=== PATIENT | male | born 1975 | race Caucasian/White ===

== ENCOUNTER 2019-03-07 18:32 | Emergency (ER) | payer OTHER ==
[2019-03-07] MEDS ORDERED: Sodium Chloride 0.9% 10 ML Syringe FLUSH PRN (18:49)
[2019-03-07] MEDS ORDERED: Sodium Chloride 0.9% 1,000 ML IV ONE (18:50)
[2019-03-07] MEDS ORDERED: Metoclopramide 10 MG/2 ML SDV IVPUSH ONE (18:56)
[2019-03-07] MEDS ORDERED: diphenhydrAMINE 50 MG/ML SDV IVPUSH ONE (18:56)
[2019-03-07] MEDS ORDERED: Dexamethasone 4 MG/ML SDV IVPUSH ONE (18:57)
[2019-03-07] MEDS ORDERED: Ketorolac 30 MG/ML SDV IVPUSH ONE (18:57)
[2019-03-07] MEDS ORDERED: LORazepam 2 MG/ML SDV IVPUSH ONE (19:22)
--- NOTE | 2019-03-07 19:31 | EDM.PDOC ---
ED HPI GENERAL MEDICAL PROBLEM - General Chief Complaint: Headache Stated Complaint: MIGRAINE Time Seen by Provider: 03/07/19 19:15 Source of Information: Reports: Patient History Limitations: Reports: No Limitations - History of Present Illness INITIAL COMMENTS - FREE TEXT/NARRATIVE: Devan is a 43 year old male, hx of HTN, just seen at [place] "my blood work all looked good" for his ongoing HTN issues. Patient on Metoprolol, another medication added yesterday, patient unsure of name but possibly amlodipine. Patient just started this yesterday. Patient presents today with a headache, hx of migraines normally relived with Imitrex and Lyric, not today, worse pain than normal. Patient has vomited 3 times today. Patient denies any fever/chills /neck pain or stiffness or trauma. Patient took ibuprofen this morning, also ineffective. Patient reports light/loud sounds makes symptoms worse. Onset: Today - Related Data Allergies Allergy/AdvReac Type Severity Reaction Status Date / Time No Known Allergies Allergy Verified 03/07/19 18:51 Home Meds: Home Meds *Blood Pressure Med 10 mg PO DAILY 03/07/19 [History] *Testosterone ASDIRECTED 03/07/19 [History] Levothyroxine 200 mcg PO ACBREAKFAST 03/07/19 [History] Metoprolol Tartrate [Lopressor] 100 mg PO BID 03/07/19 [History] SUMAtriptan Succinate [Imitrex] 100 mg PO ASDIRECTED PRN 03/07/19 [History] Social & Family History - Tobacco Use Smoking Status *Q: Never Smoker - Recreational Drug Use Recreational Drug Use: No ED ROS GENERAL - Review of Systems Review Of Systems: ROS reveals no pertinent complaints other than HPI. - Physical Exam Exam: See Below Exam Limited By: No Limitations General Appearance: Alert, WD/WN, Mild Distress Eye Exam: Bilateral Eye: EOMI, PERRL Ears: Normal External Exam Throat/Mouth: Normal Inspection, Normal Oropharynx Head Exam: Atraumatic, Normocephalic Neck: Normal Inspection, Supple, Non-Tender Respiratory/Chest: No Respiratory Distress Cardiovascular: Normal Peripheral Pulses, Regular Rate, Rhythm, Other ( Hypertensive) Extremities: Normal Inspection Psychiatric: Normal Affect Skin Exam: Warm, Dry Course - Vital Signs Last Recorded V/S: Last Vital Signs Temp Pulse 87 03/07/19 20:22 Resp 16 03/07/19 20:22 BP 125/79 03/07/19 20:22 Pulse Ox 94 L 03/07/19 20:22 Devan is a 43 year old male, hx of HTN and migraine headaches, presents to the ED today with migraine unrelieved at home with Imitrex and a shot of Lyric which is usually effective for him. Patient arrives here significantly hypertensive, afebrile, no nuchal rigidity, signs of meningismus or neuro/focal deficits. Patient given IV fluids with Reglan, Benadryl, Toradol, and Decadron with minimal improvement in his symptoms. Given his HTN and severity of headache I am concerned about an acute intracranial process related to his HTN, CT of head obtained and is fortunately negative. Patient was given 1 mg of Ativan IV with resolution of headache and significant improvement in blood pressure to 125/79. Patient would like to go home to bed, he will continue on previously prescribed medication regime with new anti-hypertensive that was started yesterday. Patient instructed to stay well hydrated, reasons to return to the ED discussed, patient agreeable to plan of care and discharged in stable condition with his brother in law driving. - Orders/Labs/Meds Orders: Active Orders 24 hr Category Date Time Status Peripheral IV Care [RC] . DIRECTED Care 03/07/19 18:49 Active Sodium Chloride 0.9% [Saline Flush] Med 03/07/19 18:49 Active 10 ml FLUSH ASDIRECTED PRN Peripheral IV Insertion Adult [OM.PC] Routine Oth 03/07/19 18:49 Ordered Medication Orders Sodium Chloride (Saline Flush) 10 ml FLUSH ASDIRECTED PRN PRN Reason: Keep Vein Open Last Admin: 03/07/19 19:14 Dose: 10 ml Meds: Medications Generic Name Dose Route Start Last Admin Trade Name Freq PRN Reason Stop Dose Admin Sodium Chloride 10 ml 03/07/19 18:49 03/07/19 19:14 Saline Flush FLUSH 10 ml ASDIRECTED PRN Administration Keep Vein Open Discontinued Medications Generic Name Dose Route Start Last Admin Trade Name Freq PRN Reason Stop Dose Admin Dexamethasone 4 mg 03/07/19 18:57 03/07/19 19:14 Dexamethasone IVPUSH 03/07/19 18:58 4 mg ONETIME ONE Administration Diphenhydramine HCl 25 mg 03/07/19 18:56 03/07/19 19:14 Benadryl IVPUSH 03/07/19 18:57 25 mg ONETIME ONE Administration Sodium Chloride 1,000 mls @ 999 mls/hr 03/07/19 18:50 03/07/19 19:14 Normal Saline IV 03/07/19 19:50 999 mls/hr .BOLUS ONE Administration Ketorolac Tromethamine 30 mg 03/07/19 18:57 03/07/19 19:11 Toradol IVPUSH 03/07/19 18:58 30 mg ONETIME ONE Administration Lorazepam 1 mg 03/07/19 19:22 03/07/19 19:28 Ativan IVPUSH 03/07/19 19:23 1 mg ONETIME ONE Administration Metoclopramide HCl 10 mg 03/07/19 18:56 03/07/19 19:14 Reglan IVPUSH 03/07/19 18:57 10 mg ONETIME ONE Administration Departure - Departure Time of Disposition: 21:00 Disposition: Home, Self-Care 01 Condition: Good Clinical Impression: Migraine High blood pressure disorder Qualifiers: Hypertension type: unspecified Qualified Code(s): I10 - Essential (primary) hypertension - Discharge Information Instructions: Preventing Hypertension, Recurrent Migraine Headache, Easy-to- Read, Migraine Headache Referrals: PCP,None [Primary Care Provider] - Forms: ED Department Discharge Additional Instructions: Your CT scan was reassuring. Please continue your blood pressure medications (both of them). Stay well hydrated. Return here with any new or concerning symptoms. - My Orders Last 24 Hours: My Active Orders 03/07/19 18:49 Peripheral IV Care [RC] . DIRECTED Sodium Chloride 0.9% [Saline Flush] 10 ml FLUSH ASDIRECTED PRN Peripheral IV Insertion Adult [OM.PC] Routine - Assessment/Plan Last 24 Hours: My Active Orders 03/07/19 18:49 Peripheral IV Care [RC] . DIRECTED Sodium Chloride 0.9% [Saline Flush] 10 ml FLUSH ASDIRECTED PRN Peripheral IV Insertion Adult [OM.PC] Routine
--- NOTE | 2019-03-07 20:15 | CRLCT ---
Indication: Headache, hypertension Technique: Nonenhanced axial CT imaging through the head. Coronal reconstructions are provided. Comparison: None Findings: There is no intracranial hemorrhage, edema, or mass effect. There is normal attenuation of the brain parenchyma. Dilated perivascular space is noted in the left putamen. The ventricles are normal in size. The basal cisterns are patent. The calvarium is intact. The visualized paranasal sinuses and mastoid air cells are well aerated. Impression: No acute intracranial process. Please note that all CT scans at this facility use dose modulation, iterative reconstruction, and/or weight-based dosing when appropriate to reduce radiation dose to as low as reasonably achievable. Dictated by Danielle Lyn MD @ Mar 07 2019 8:14PM Signed by Dr. Danielle Lyn @ Mar 07 2019 8:14PM
== END 2019-03-07 21:00 | disposition home or self-care (01) ==
LOC: JP.ED 18:32
DX: G43.909 Migraine, unspecified, not intractable, without status migrainosus (principal); I10 Essential (primary) hypertension
CPT/HCPCS: 70450; 96361; 96374; 96375; 99284; J1100; J1200; J1885; J2060; J2765; J7030